=== PATIENT | female | born 1975 | race Caucasian/White ===

== ENCOUNTER → 2023-10-30 08:03 | Outpatient (REF) | payer OTHER, SELFPAY | LOC: HWRAD 08:03 | PROVIDERS: ATTENDING PHYSICIAN Internal Medicine Endocrinology, Diabetes & Metabolism; FAMILY PHYSICIAN Family Medicine | DX: E03.9 Hypothyroidism, unspecified (principal); Z85.850 Personal history of malignant neoplasm of thyroid; I10 Essential (primary) hypertension | CPT/HCPCS: 76536 ==

== ENCOUNTER → 2023-11-24 13:30 | Outpatient (REF) | payer SELFPAY | LOC: HWRAD 13:30 | PROVIDERS: ATTENDING PHYSICIAN Family Medicine | DX: E78.5 Hyperlipidemia, unspecified (principal); E11.69 Type 2 diabetes mellitus with other specified complication | CPT/HCPCS: 75571 ==

== ENCOUNTER → 2024-01-30 16:15 | Outpatient (REF) | payer OTHER, SELFPAY | LOC: WDC 16:15 | PROVIDERS: ATTENDING PHYSICIAN Obstetrics & Gynecology Gynecology; FAMILY PHYSICIAN Family Medicine | DX: Z12.31 Encounter for screening mammogram for malignant neoplasm of breast (principal) | CPT/HCPCS: 77063; 77067 ==

== ENCOUNTER → 2024-05-07 08:19 | Outpatient (REF) | payer OTHER, SELFPAY | LOC: WDC 08:19 | PROVIDERS: ATTENDING PHYSICIAN Nurse Practitioner Adult Health; FAMILY PHYSICIAN Family Medicine | DX: N64.4 Mastodynia (principal); R92.30 Dense breasts, unspecified | CPT/HCPCS: 76641 ==

== ENCOUNTER → 2024-10-22 08:25 | Outpatient (REF) | payer OTHER, SELFPAY | LOC: HWRAD 08:25 | PROVIDERS: ATTENDING PHYSICIAN Nurse Practitioner Adult Health; FAMILY PHYSICIAN Family Medicine | DX: N93.9 Abnormal uterine and vaginal bleeding, unspecified (principal) | CPT/HCPCS: 76830; 76856 ==

== ENCOUNTER → 2024-11-07 13:45 | Outpatient (REF) | payer OTHER, SELFPAY | LOC: WDC 13:45 | PROVIDERS: ATTENDING PHYSICIAN Obstetrics & Gynecology Gynecology; FAMILY PHYSICIAN Family Medicine | DX: R92.8 Other abnormal and inconclusive findings on diagnostic imaging of breast (principal) | CPT/HCPCS: 76642 ==

== ENCOUNTER → 2025-01-30 16:16 | Outpatient (REF) | payer OTHER, SELFPAY | LOC: WDC 16:16 | PROVIDERS: ATTENDING PHYSICIAN Obstetrics & Gynecology Gynecology; FAMILY PHYSICIAN Family Medicine | DX: Z12.31 Encounter for screening mammogram for malignant neoplasm of breast (principal) | CPT/HCPCS: 77063; 77067 ==

== ENCOUNTER 2025-02-21 15:33 | Emergency (ER) | payer OTHER, SELFPAY ==
[2025-02-21 15:38] VITALS: BP 180/94
--- NOTE | 2025-02-21 17:36 | ED.SKININJ ---
HPI-Injury
General
Chief Complaint: Bite
Source: patient
Exam Limitations: none
Time Seen by Provider: 02/21/25 16:01
Nursing documentation reviewed up to this point in time: agreed with
History of Present Illness-Injury
Initial Injury comments:
The patient is a pleasant 49-year-old female who reports that her poodle got scared, just prior to arrival, and bit her left hand. Patient reports that the top of her hand is very painful and swollen. Symptoms have improved with an ice pack.
There is no skin that broke with the bite. Patient denies any fall or any other injuries.
Past History
Past History
ED Past Medical History: HTN and Other (Graves' disease)
ED Past Surgical History: Other
Social History
Tobacco: Non-smoker
Alcohol: Other
Drug: None
Personal:
Living: with family
Employment: Other
Family History
Family History: Other
Review of Systems
Review of Systems
Allergies reviewed?: Yes
All Other Systems: ROS reviewed and negative except as documented in HPI and ROS
Constitutional: Reports no symptoms
EENT: Reports no symptoms
Respiratory: Reports no symptoms
Cardiac: Reports no symptoms
ABD/GI: Reports no symptoms
: Reports no symptoms
Musculoskeletal: Reports muscle pain
Skin: Reports no symptoms
Neurological: Reports no symptoms
Endocrine: Reports no symptoms
Hematologic/Lymphatic: Reports no symptoms
Psychiatric: Reports no symptoms
Phy Exam
Physical Exam
Physical Exam:
Physical Exam
General: no apparent distress, not acutely ill. Atraumatic appearing face and head
Neck: supple.
Heart: s1/s2 regular rate and rhyth.
Lungs: no acute respiratory distress.
Abdomen: Soft
Neuro: alert and oriented. no focal neurological deficits, 5 out of 5 strength in both handgrips
Skin: Ecchymotic dorsal aspect of left hand without any skin breakdown, abrasion or laceration
Psychiatric: well kept. interactive and cooperative
Extremities: Ecchymotic and swollen dorsal aspect of left hand
Course
Orders/Labs/Results
Orders:
Orders
02/21/25 17:03
Hand, Left 3 View [CR Hand - Left Min 3 Views] Urgent
Comment:
Reason For Exam: dog bite, pain and swelling of hand
Vital Signs
Initial and Last Documented VS:
Initial Vital Signs
Temp Pulse Resp BP Pulse Ox
99.2 F 100 16 180/94 98
02/21/25 15:38 02/21/25 15:38 02/21/25 15:38 02/21/25 15:38 02/21/25 15:38
Last Documented Vital Signs
Temp Pulse Resp BP Pulse Ox
99.2 F 100 16 180/94 98
02/21/25 15:38 02/21/25 15:38 02/21/25 15:38 02/21/25 15:38 02/21/25 17:36
MDM/Problems Addressed
Differential Diagnosis Includes:
Left hand contusion, left hand fracture
MDM/Problems Addressed:
Patient presents with acute pain and swelling to left hand
Chronic conditions affecting care: HTN
Acute Exacerbation and/or Progression of Chronic Illness:
Patient is acutely hypertensive, however, I suspect this is due to pain and her being so upset about the incidence. Patient denies headache, weakness, numbness or any neurological symptoms related to high blood pressure. She denies chest pain and
shortness of breath.
*Radiology
Radiology exam reviewed: preliminary read by ED provider (Left hand x-ray reviewed by me. No acute fracture) and radiology read reviewed
*Pulse Oximetry
SaO2: 98
Oxygen Mode of Delivery: Room air
Patient hypoxic: no
*EKG
Interpreted by ED Provider?: NA
*[place] Interpretation
Rate: [place]- N/A
*Critical Care Note
Total Time (30-74mins, 75-104mins- exclusive of procedures): Not Applicable
Data Reviewed
Review of Other/Old Records Reveals: Labs (Labs reviewed from 12/2022. Showed normal CBC)
Source: patient and spouse
Patient Management
Social determinants of health affecting care: Living situation and Strong social support
ED Attending Note
-
Portions of this chart may have been created with voice recognition software.� Occasional wrong word or��sound alike� substitutions may have occurred due to the inherent limitations of voice recognition software.
Discharge Plan
Departure
Patient Disposition: Home (Routine Discharge)
Date of Disposition: 02/21/25
Time of Disposition: 18:29
Patient with high blood pressure during this ER visit?: Yes
Condition: Good
Covid-19: Not Applicable
Discharge Problem:
Contusion of hand, left, Animal bite
Instructions: Animal Bites (DC), BLOOD PRESSURE, Contusion
Prescriptions:
No Action
cephalexin 500 mg tablet
500 mg PO TID Qty: 21 0RF
Referrals:
Lori Menchaca DO [Family Provider, Family Practice]
Activity Restrictions/Additional Instructions:
Continue to apply an ice pack for 7 to 10 minutes at a time multiple times a day to your left hand to control swelling and pain. Take 600 mg of Motrin every 6-8 hours with food for pain
Interventions
Interventions:
*Risk Screen - Suicide Last Done: 02/21/25 15:38
*Neglect/Abuse Screening Last Done: 02/21/25 15:38
*Nursing Disposition Last Done: 02/21/25 18:59
ED-Skin Assessment Last Done: 02/21/25 16:00
Discharge Date and Time
Discharge Date/Time: 02/21/25 18:59
Print Language: IVORIAN
== END 2025-02-21 18:59 | disposition home or self-care (01) ==
LOC: EMR 15:33
PROVIDERS: EMERGENCY PHYSICIAN Emergency Medicine; FAMILY PHYSICIAN Family Medicine
DX: S60.222A Contusion of left hand, initial encounter (principal); W54.0XXA Bitten by dog, initial encounter; I10 Essential (primary) hypertension
CPT/HCPCS: 99283; 73130

== ENCOUNTER → 2025-05-07 07:56 | Outpatient (REF) | payer OTHER, SELFPAY | LOC: WDC 07:56 | PROVIDERS: ATTENDING PHYSICIAN Obstetrics & Gynecology Gynecology; FAMILY PHYSICIAN Family Medicine | DX: R92.30 Dense breasts, unspecified (principal) | CPT/HCPCS: 76641 ==